=== PATIENT | female | born 1990 | race American Indian/Alaskan Native ===

== ENCOUNTER 2018-02-27 17:25 | Emergency (ER) | payer MEDICAID ==
[2018-02-27 19:35] LABS: Basophils # (Auto) 0.1 K/mm3 (0.0-0.1); Basophils % (Auto) 0.6 % (0.0-1.8); Eosinophils # (Auto) 0.1 K/mm3 (0.0-0.4); Eosinophils % (Auto) 1.2 % (0.0-4.3); Hematocrit 36.6 % (30.3-42.9); Hemoglobin 12.2 gm/dl (10.1-14.3); Lymphocytes # (Auto) 3.3 K/mm3 (1.2-5.4); Lymphocytes % (Auto) 31.8 % (13.4-35.0); Mean Corpuscular HGB Conc 33 % (30-34); Mean Corpuscular Hemoglobin 28 pg (28-32); Mean Corpuscular Volume 85 fl (79-97); Monocytes # (Auto) 0.6 K/mm3 (0.0-0.8); Monocytes % (Auto) 5.3 % (0.0-7.3); Platelet Count 246 K/mm3 (140-440); Red Blood Count 4.31 M/mm3 (3.65-5.03); Red Cell Distribution Width 12.9 % (13.2-15.2)
--- NOTE | 2018-02-27 20:07 | Emergency Department Report ---
ED HPI - General Chief complaint: Vaginal Bleeding Stated complaint: CRAMPING AND SPOTTING BLEEDING Time Seen by Provider: 02/27/18 20:06 Source: patient Mode of arrival: Ambulatory Limitations: No Limitations - History of Present Illness Initial comments: Patient is 4 para 1 with 2 miscarriages/abortions. She was seen on at [facility] for , confirmation. Patient complains of abdominal cramping and spotting for a week. Patient reports that lead is only on the tissue when she wipes. Pain pills tablets prescribed ADM does not help with her pain. Patient has not started OB care but has started her vitamins. MD Complaint: vaginal bleeding (scant blood on toilet tissue) -: week(s) (1) Location: pelvis Severity scale (0 -10): 8 Quality: cramping Consistency: constant Improves with: none Worsens with: none Associated symptoms: vaginal bleeding Vaginal bleeding: light :: Yes Number of weeks : 5 OB History - Previous Pregnancies: miscarriage Last menstrual period: 01/22/18 Pre-farideh care: none, previous ultrasound confi - Related Data : 4 Para: 1 Ab: 2 Allergies Allergy/AdvReac Type Severity Reaction Status Date / Time No Known Allergies Allergy Unverified 02/27/18 17:28 ED Review of Systems ROS: Stated complaint: CRAMPING AND SPOTTING BLEEDING Other details as noted in HPI Gastrointestinal: abdominal pain (pelvic cramping), nausea Genitourinary: other (vaginal bleeding) ED Past Medical Hx - Past Medical History Previous Medical History?: Yes Hx Asthma: Yes Additional medical history: Miscarriage x 2 - Surgical History Past Surgical History?: Yes Additional Surgical History: x 1 - Social History Smoking Status: Never Smoker Substance Use Type: Other ED Physical Exam - General Limitations: No Limitations - Head Head exam: Present: atraumatic, normocephalic - Eye Eye exam: Present: normal appearance - ENT ENT exam: Present: mucous membranes moist - Cardiovascular Cardiovascular Exam: Present: regular rate, normal rhythm. Absent: systolic murmur, diastolic murmur, rubs, gallop - GI/Abdominal GI/Abdominal exam: Present: soft, normal bowel sounds - External exam: Present: normal external exam Speculum exam: Present: normal speculum exam Bi-manual exam: Absent: cervical motion tendernes, adnexal tenderness, adnexal mass - Extremities Exam Extremities exam: Present: normal inspection, full ROM - Back Exam Back exam: Present: normal inspection - Neurological Exam Neurological exam: Present: alert, oriented X3 - Psychiatric Psychiatric exam: Present: normal affect, normal mood - Skin Skin exam: Present: warm, dry, intact, normal color. Absent: rash ED Course Vital Signs 02/27/18 17:28 Temperature 98.8 F Pulse Rate 96 H Respiratory 20 Rate Blood Pressure 106/44 O2 Sat by Pulse 98 Oximetry ED Medical Decision Making - Lab Data Result diagrams: 02/27/18 19:07 - Radiology Data Radiology results: report reviewed, image reviewed FINDINGS: There is an intrauterine , with mean sac diameter of 17.4 mm, which contains a yolk sac, but no pole identified at this time ( pole should typically be visualized during transvaginal examination with mean sac diameter of 16 mm or greater). Ultrasound estimated gestational age is 6 weeks 4 days. Ultrasound estimated date of confinement is 19 October 2018. The right ovary measures 2.3 x 1.4 x 1.9 cm and is grossly unremarkable. The left ovary measures 2.2 x 1.2 x 1.4 cm and is grossly unremarkable. Remainder of uterus and adnexa grossly unremarkable. IMPRESSION: 1. Intrauterine of uncertain viability. Correlation with serial beta-hCG levels and follow-up ultrasound may help in further evaluation. Transcribed By: [facility] Dictated By: HARSHA NELSON MD Electronically Authenticated By: HARSHA NELSON MD Signed Date/Time: 02/27/182139 DD/ 39 TD/TT: 02/27/182139 - Medical Decision Making Patient has been evaluated his provider in fast track. Ultrasound was performed HCG was ordered Discussed with patient she needs to follow up in 3 days for a repeat ultrasound and hCG blood work. Patient verbalizes understanding Vital signs are stable. Blood pressure 110/73, pulse rate 67, 100% on room air , respirations 16 nonlabored Critical care attestation.: If time is entered above; I have spent that time in minutes in the direct care of this critically ill patient, excluding procedure time. ED Disposition Clinical Impression: Vaginal bleeding in patient at less than 20 weeks gestation Disposition: - TO HOME OR SELFCARE Is pt being admited?: No Does the pt Need Aspirin: No Condition: Stable Additional Instructions: Please return back to the emergency room or your [facility] office within 3 days. We need to repeat her blood work as well as an ultrasound. You can take Tylenol for pain. Referrals: PRIMARY CARE, [Primary Care Provider] - 3-5 Days Forms: Work/School Release Form(ED)
--- NOTE | 2018-02-27 21:44 | Ultrasound Report ---
FINAL REPORT EXAM: US OB < = 14 WEEKS FETUS HISTORY: , vaginal bleeding, cramping TECHNIQUE: Transabdominal and transvaginal sonography of the pelvis. PRIORS: None. FINDINGS: There is an intrauterine , with mean sac diameter of 17.4 mm, which contains a yolk sac, but no pole identified at this time ( pole should typically be visualized during transvaginal examination with mean sac diameter of 16 mm or greater). Ultrasound estimated gestational age is 6 weeks 4 days. Ultrasound estimated date of confinement is 19 October 2018. The right ovary measures 2.3 x 1.4 x 1.9 cm and is grossly unremarkable. The left ovary measures 2.2 x 1.2 x 1.4 cm and is grossly unremarkable. Remainder of uterus and adnexa grossly unremarkable. IMPRESSION: 1. Intrauterine of uncertain viability. Correlation with serial beta-hCG levels and follow-up ultrasound may help in further evaluation.
[2018-02-28 00:36] LABS: Bilirubin,Urine NEG (Negative); Blood,Urine NEG (Negative); Color,Urine Yellow (Yellow); Mucus,Urine 2+ /HPF
[2018-02-28 01:21] VITALS: BP 103/64
== END 2018-02-28 01:21 | disposition home or self-care (01) ==
LOC: ED 17:25
DX: O46.91 Antepartum hemorrhage, unspecified, first trimester (principal); Z3A.01 Less than 8 weeks gestation of pregnancy; O99.511 Diseases of the respiratory system complicating pregnancy, first trimester; J45.909 Unspecified asthma, uncomplicated
CPT/HCPCS: 36415; 76801; 76817; 81001; 84702; 85025; 86850; 86900; 86901; 99284

== ENCOUNTER 2018-03-02 18:25 | Emergency (ER) | payer MEDICAID ==
--- NOTE | 2018-03-02 21:40 | Emergency Department Report ---
ED General Adult HPI - General Chief complaint: Medical Clearance Stated complaint: FOLLOW UP Time Seen by Provider: 03/02/18 21:19 Source: patient Mode of arrival: Ambulatory Limitations: No Limitations - History of Present Illness Initial comments: Patient is 27 years old female with no significant past medical history. Patient is 6 weeks presented today for a repeat of her beta hCG and an ultrasound. Patient was seen here 2 days ago with inconclusive ultrasound finding. Patient presented with vaginal bleeding but today she stated that her bleeding is stopped completely but she still having the cramping. Patient denied any fever, nausea or vomiting or other symptoms. - Related Data Allergies Allergy/AdvReac Type Severity Reaction Status Date / Time No Known Allergies Allergy Unverified 02/27/18 17:28 ED Review of Systems ROS: Stated complaint: FOLLOW UP Other details as noted in HPI Comment: All other systems reviewed and negative Cardiovascular: denies: chest pain, palpitations, dyspnea on exertion Gastrointestinal: abdominal pain Neurological: denies: headache, weakness ED Past Medical Hx - Past Medical History Previous Medical History?: Yes Hx Asthma: Yes Additional medical history: Miscarriage x 2, Vaginal bleeding with - Surgical History Past Surgical History?: Yes Additional Surgical History: x 1 - Social History Smoking Status: Never Smoker Substance Use Type: Non Opiate Pain, Other ED Physical Exam - General Limitations: No Limitations General appearance: alert, in no apparent distress - Head Head exam: Present: atraumatic, normocephalic, normal inspection - ENT ENT exam: Present: normal exam, normal orophraynx, mucous membranes moist - Neck Neck exam: Present: normal inspection, full ROM. Absent: tenderness, meningismus, lymphadenopathy, thyromegaly - Respiratory Respiratory exam: Present: normal lung sounds bilaterally - Cardiovascular Cardiovascular Exam: Present: regular rate, normal rhythm, normal heart sounds - GI/Abdominal GI/Abdominal exam: Present: soft, normal bowel sounds. Absent: distended, tenderness, guarding, rebound, rigid, organomegaly, mass, bruit, pulsatile mass - Extremities Exam Extremities exam: Present: normal inspection, full ROM, normal capillary refill - Back Exam Back exam: Present: normal inspection, full ROM. Absent: tenderness, CVA tenderness (R), CVA tenderness (L), muscle spasm, paraspinal tenderness - Neurological Exam Neurological exam: Present: alert, oriented X3, CN II-XII intact, normal gait - Skin Skin exam: Present: warm, intact, normal color ED Course Vital Signs 03/02/18 03/02/18 18:54 22:32 Temperature 98.5 F Pulse Rate 77 Respiratory 18 18 Rate Blood Pressure 102/56 O2 Sat by Pulse 98 Oximetry ED Medical Decision Making - Lab Data Result diagrams: 03/02/18 21:44 - Radiology Data Radiology results: report reviewed Referring Physician: YOLA MURPHY Patient Name: JENNA QUINTANILLA Date of : 1990 Sex: Female Report Date: 2018-03-03 Report Status: Finalized Findings [facility] [address] [place] [address] Ultrasound Report Signed Patient: JENNA QUINTANILLA MR#: [id number] : 1990 Acct:[id number] Age/Sex: 27 / F ADM Date: 03/02/18 Loc: ED Attending Dr: Ordering Physician: YOLA MURPHY Date of Service: 03/02/18 Procedure(s): US OB transvaginal Accession Number(s): [id number] cc: YOLA MURPHY FINAL REPORT PROCEDURE: US OB TRANSVAGINAL TECHNIQUE: Real-time transvaginal sonography of the uterus, placenta, amniotic fluid, adnexa, and fetus was performed with image documentation. Measurements were obtained to determine age/size. M-mode Doppler was used to document heartbeat. CPT 00989 HISTORY: abdominal pain, 6 weeks COMPARISON: No prior studies are available for comparison. FINDINGS: CRL: 4mm, which corresponds to a gestational age of: 6weeks, 1 days. Yolk Sac: Normal. Embryonic Cardiac Activity: 109 beats per minute Gestational Sac: There is a small subchorionic hemorrhage measuring up to 13 millimeters Right Ovary: A 26 millimeter partially solid density Left Ovary: There is a 21 millimeter cyst on the left ovary Estimated delivery date: 10/25/2018 Comment: Complete anatomic survey at 18-20 weeks suggested. IMPRESSION: 1. Single living intrauterine gestation at approximately 6 weeks 1 day 2. EDC by 10/25/2018. Transcribed By: [facility] Dictated By: REMEDIOS LANZA MD Electronically Authenticated By: REMEDIOS LANZA MD Signed Date/Time: 03/03/1838 DD/ TD/TT: 03/03/1838 Critical care attestation.: If time is entered above; I have spent that time in minutes in the direct care of this critically ill patient, excluding procedure time. ED Disposition Clinical Impression: Abdominal pain affecting Disposition: -01 TO HOME OR SELFCARE Is pt being admited?: No Condition: Stable Instructions: Abdominal Pain in (ED) Referrals: LINDSEY ALLRED MD [Staff Physician] - 3-5 Days
[2018-03-02 22:16] LABS: Basophils # (Auto) 0.1 K/mm3 (0.0-0.1); Basophils % (Auto) 0.7 % (0.0-1.8); Eosinophils # (Auto) 0.2 K/mm3 (0.0-0.4); Eosinophils % (Auto) 1.6 % (0.0-4.3); Hematocrit 36.3 % (30.3-42.9); Hemoglobin 12.4 gm/dl (10.1-14.3); Lymphocytes % (Auto) 28.6 % (13.4-35.0); Mean Corpuscular HGB Conc 34 % (30-34); Mean Corpuscular Hemoglobin 29 pg (28-32); Mean Corpuscular Volume 84 fl (79-97); Monocytes # (Auto) 0.7 K/mm3 (0.0-0.8); Monocytes % (Auto) 6.3 % (0.0-7.3); Platelet Count 239 K/mm3 (140-440); Red Blood Count 4.33 M/mm3 (3.65-5.03); Red Cell Distribution Width 12.6 % (13.2-15.2)
--- NOTE | 2018-03-03 00:43 | Ultrasound Report ---
FINAL REPORT PROCEDURE: US OB TRANSVAGINAL TECHNIQUE: Real-time transvaginal sonography of the uterus, placenta, amniotic fluid, adnexa, and fetus was performed with image documentation. Measurements were obtained to determine age/size. M-mode Doppler was used to document heartbeat. CPT 20846 HISTORY: abdominal pain, 6 weeks COMPARISON: No prior studies are available for comparison. FINDINGS: CRL: 4mm, which corresponds to a gestational age of: 6weeks, 1 days. Yolk Sac: Normal. Embryonic Cardiac Activity: 109 beats per minute Gestational Sac: There is a small subchorionic hemorrhage measuring up to 13 millimeters Right Ovary: A 26 millimeter partially solid density Left Ovary: There is a 21 millimeter cyst on the left ovary Estimated delivery date: 10/25/2018 Comment: Complete anatomic survey at 18-20 weeks suggested. IMPRESSION: 1. Single living intrauterine gestation at approximately 6 weeks 1 day 2. EDC by US 10/25/2018.
[2018-03-03 01:07] VITALS: BP 101/55
--- NOTE | 2018-03-05 08:44 | Ultrasound Report ---
FINAL REPORT EXAM: US OB < = 14 WEEKS FETUS HISTORY: abdominal pain, 6 weeks COMPARISONS: 02/27/2018 FINDINGS: Transabdominal grayscale, color Doppler and M-mode first-trimester ultrasound. Note that transabdominal images were obtained on 03/02/2018 but not submitted for interpretation until 03/05/2018. Single living intrauterine with recorded cardiac activity of 109 beats per minute. [place]-rump length is approximately 4 millimeters, which corresponds to estimated gestational age of 6 weeks 0 days. Small perigestational hemorrhage is suggested involving less than 50 percent of the gestational sac surface area. No significant free fluid in the pelvis. The ovaries are better demonstrated on transvaginal ultrasound of the same date. IMPRESSION: Single living intrauterine . Perigestational hemorrhage is present involving less than 50 percent of the gestational sac surface area. Please see transvaginal ultrasound of the same date.
== END 2018-03-03 01:13 | disposition home or self-care (01) ==
LOC: ED 18:25
DX: O46.91 Antepartum hemorrhage, unspecified, first trimester (principal); Z3A.01 Less than 8 weeks gestation of pregnancy
CPT/HCPCS: 36415; 76801; 76817; 84702; 85025; 99284